=== PATIENT | male | born 1975 | race Hispanic/Latino ===

== ENCOUNTER → 2019-01-26 | Day surgery (SDC) | payer OTHER ==
[2019-01-24 09:44] LABS: BASOPHILS % 0.4 % (0.0-1.0); EOSINOPHILS # (AUTO) 0.1 (0.0-0.4); EOSINOPHILS % 1.1 % (0.0-6.0); HEMATOCRIT 45.7 % (38.2-49.6); HEMOGLOBIN 16.1 g/dL (14.0-18.0); LYMPHOCYTES # (AUTO) 1.9 (1.0-3.2); LYMPHOCYTES % 22.7 % (18.0-39.1); MEAN CORPUSCULAR HEMOGLOBIN 30.7 pg (28-32); MEAN CORPUSCULAR HGB CONC 35.2 g/dL (31-35); MONOCYTES # (AUTO) 0.8 (0.2-0.8); MONOCYTES % 9.4 % (4.4-11.3); NEUTROPHILS # (AUTO) 5.7 (2.1-6.9); PLATELET COUNT 285 x10e3/uL (140-360); RED BLOOD COUNT 5.25 x10e6/uL (4.3-5.7); RED CELL DISTRIBUTION WIDTH 12.2 % (11.7-14.4)
[2019-01-24 10:00] LABS: ANION GAP 14.7 mmol/L (8-16); BLOOD UREA NITROGEN 18 mg/dL (7-26); BUN/CREATININE RATIO 16 (6-25); CALCIUM 9.8 mg/dL (8.4-10.2); CARBON DIOXIDE 22 mmol/L (22-29); CHLORIDE 104 mmol/L (98-107); CREATININE, SERUM 1.11 mg/dL (0.72-1.25); EST GLOMERULAR FILTRATION RATE > 60 ML/MIN (60-); GLUCOSE 87 mg/dL (74-118); POTASSIUM 3.7 mmol/L (3.5-5.1); SODIUM 137 mmol/L (136-145)
[~2019-01-26] MED LIST: ACETAMINOPHEN 1000 MG/100 ML IV ONE; AMLODIPINE BESY10 MG PO; BUPIVACAINE 0.25%/EPI 30ML SDV INJ ONE; DEXAMETHASONE SOD PHOS INJ 4 MG/ML VIAL ONE; FENTANYL CITRATE/PF 100MCG/2 ML INJ ONE; GLYCOPYRROLATE INJ 1MG/ 5 ML SYR ONE; HYDROCODONE/APAP 7.5MG-325MG 1 EA TAB ONE; HYDROMORPHONE 1MG/1ML INJ ONE; KETOROLAC TROMETHAMINE 30 MG/ML VIAL ONE; LIDOCAINE HCL 1% LOCAL INJ 20 ML VIAL ONE; LIDOCAINE HCL 2% LOCAL INJ 5 ML SDV VIAL INJ ONE; MIDAZOLAM HCL 2 MG/2 ML VIAL ONE; NEOSTIGMINE 5 MG/5ML SYR ONE; ONDANSETRON HCL INJ 2MG/ML 2ML 2 MG/ML VIAL ONE; PROPOFOL IV EMULSION 10 MG/ML 20 ML VIAL ONE; ROCURONIUM BROMIDE 10 MG/ML 5ML VIAL ONE; SEVOFLURANE INHAL SOLN 250 ML PEN BTL ONE; ULTRAM 50MG50 MG PO
--- OUTSIDE RECORDS SUMMARY | 2019-01-26 07:38 | XMS REPORT ---
Author Author [facility] Address Unknown Phone Unavailable Care Team Providers Care Scanner Supervisor Name Role Phone Unavailable Unavailable Problems This patient has no known problems. Allergies, Adverse Reactions, Alerts This patient has no known allergies or adverse reactions. Medications This patient has no known medications. Results Test Description Test Time Test Comments Text Results Atomic Results Result Comments US [employer] w/Transvag if indicated 2018-12-26 19:39:12 Patient: UBALDO MONTANO Date/Time12/26/2018 19:03 CDTReason for Examllq buldging;Pain (please specify)ReportCLINICAL INFORMATION: Bulging of the left lower quadrantDictation Location: R 16Comparison: No prior.Technique: Real-time grayscale study with Doppler analysisFindings: There is bulging at the left lower quadrant which appears to be a hernia within the precise location of the hernia opening not established. The gap is approximately 1 cm, and the hernia sac approximately 2 cm. There is peristalsis and blood flow demonstrated.IMPRESSION: Apparent inguinal hernia to be correlated with clinical findings. Final Dictated by: MD Sommer Andrew GDictated DT/TM: 12/26/2018 7:37 pmSigned by: MD Sommer Andrew GSigned (Electronic Signature): 12/26/2018 7:39 pm Comprehensive Metabolic Panel 2018-12-26 19:03:55 Sodium Level (test code=Sodium Level) 142.0 mmol/L 135.0-145.0 Potassium Level (test code=Potassium Level) 4.3 mmol/L 3.5-5.1 Chloride Level (test code=Chloride Level) 104 mmol/L 98-105 CO2 (test code=CO2) 22 mmol/L 22-29 Anion Gap (test code=Anion Gap) 16 mmol/L 7-16 BUN (test code=BUN) 17.30 mg/dL 6.00-20.00 Creatinine Level (test code=Creatinine Level) 1.20 mg/dL 0.70-1.20 BUN/Creat Ratio (test code=BUN/Creat Ratio) 14 Glucose Level (test code=Glucose Level) 90 mg/dL 70-115 Calcium Level (test code=Calcium Level) 9.5 mg/dL 8.3-10.5 Alk Phos (test code=Alk Phos) 113 U/L 40-129 Bilirubin Total (test code=Bilirubin Total) 0.6 mg/dL 0.1-0.9 Albumin Level (test code=Albumin Level) 4.6 g/dL 3.5-5.2 Protein Total (test code=Protein Total) 7.0 g/dL 6.4-8.3 ALT (test code=ALT) 16 U/L 1-41 AST (test code=AST) 30 U/L 1-40 Globulin (test code=Globulin) 2.4 g/dL 2.9-3.1 A/G Ratio (test code=A/G Ratio) 1.9 ratio Comprehensive Metabolic [id number] 19:03:55* Test Item Value Reference Range Comments Sodium Level (test code=Sodium Level) 142.0 mmol/L 135.0-145.0 Potassium Level (test code=Potassium Level) 4.3 mmol/L 3.5-5.1 Chloride Level (test code=Chloride Level) 104 mmol/L 98-105 CO2 (test code=CO2) 22 mmol/L 22-29 Anion Gap (test code=Anion Gap) 16 mmol/L 7-16 BUN (test code=BUN) 17.30 mg/dL 6.00-20.00 Creatinine Level (test code=Creatinine Level) 1.20 mg/dL 0.70-1.20 BUN/Creat Ratio (test code=BUN/Creat Ratio) 14 Glucose Level (test code=Glucose Level) 90 mg/dL 70-115 Calcium Level (test code=Calcium Level) 9.5 mg/dL 8.3-10.5 Alk Phos (test code=Alk Phos) 113 U/L 40-129 Bilirubin Total (test code=Bilirubin Total) 0.6 mg/dL 0.1-0.9 Albumin Level (test code=Albumin Level) 4.6 g/dL 3.5-5.2 Protein Total (test code=Protein Total) 7.0 g/dL 6.4-8.3 ALT (test code=ALT) 16 U/L 1-41 AST (test code=AST) 30 U/L 1-40 Globulin (test code=Globulin) 2.4 g/dL 2.9-3.1 A/G Ratio (test code=A/G Ratio) 1.9 ratio eGFR AA (test code=eGFR AA) >60 mL/min/1.73 m2 eGFR (estimated Glomerular Filtration Rate) is an estimated value, calculated from the patient's serum creatinine using the MDRD equation. It is NOT the patient's actual GFR. The eGFR provides a more clinically useful measure of kidney disease than serum creatinine alone.This calculation takes sex and race into account, if the information is provided. If the race is not provided, and the patient is -[place], multiply by 1.212. If sex is not provided, and the patient is female, multiply by 0.742. Results for patients <18 years of age have not been validated by the MDRD study and should be interpreted with caution. eGFR Result Interpretation:eGFR > or=60 is in the Normal RangeeGFR < 60 may mean kidney diseaseeGFR < 15 may mean kidney failure Ranges recommended by the National Kidney Foundation, http://nkdep.nih.gov Comprehensive Metabolic [id number] 19:03:55* Test Item Value Reference Range Comments Sodium Level (test code=Sodium Level) 142.0 mmol/L 135.0-145.0 Potassium Level (test code=Potassium Level) 4.3 mmol/L 3.5-5.1 Chloride Level (test code=Chloride Level) 104 mmol/L 98-105 CO2 (test code=CO2) 22 mmol/L 22-29 Anion Gap (test code=Anion Gap) 16 mmol/L 7-16 BUN (test code=BUN) 17.30 mg/dL 6.00-20.00 Creatinine Level (test code=Creatinine Level) 1.20 mg/dL 0.70-1.20 BUN/Creat Ratio (test code=BUN/Creat Ratio) 14 Glucose Level (test code=Glucose Level) 90 mg/dL 70-115 Calcium Level (test code=Calcium Level) 9.5 mg/dL 8.3-10.5 Alk Phos (test code=Alk Phos) 113 U/L 40-129 Bilirubin Total (test code=Bilirubin Total) 0.6 mg/dL 0.1-0.9 Albumin Level (test code=Albumin Level) 4.6 g/dL 3.5-5.2 Protein Total (test code=Protein Total) 7.0 g/dL 6.4-8.3 ALT (test code=ALT) 16 U/L 1-41 AST (test code=AST) 30 U/L 1-40 Globulin (test code=Globulin) 2.4 g/dL 2.9-3.1 A/G Ratio (test code=A/G Ratio) 1.9 ratio eGFR AA (test code=eGFR AA) >60 mL/min/1.73 m2 eGFR (estimated Glomerular Filtration Rate) is an estimated value, calculated from the patient's serum creatinine using the MDRD equation. It is NOT the patient's actual GFR. The eGFR provides a more clinically useful measure of kidney disease than serum creatinine alone.This calculation takes sex and race into account, if the information is provided. If the race is not provided, and the patient is -[place], multiply by 1.212. If sex is not provided, and the patient is female, multiply by 0.742. Results for patients <18 years of age have not been validated by the MDRD study and should be interpreted with caution. eGFR Result Interpretation:eGFR > or=60 is in the Normal RangeeGFR < 60 may mean kidney diseaseeGFR < 15 may mean kidney failure Ranges recommended by the National Kidney Foundation, http://nkdep.nih.gov eGFR Non-AA (test code=eGFR Non-AA) >60.00 mL/min/1.73 m2 eGFR (estimated Glomerular Filtration Rate) is an estimated value, calculated from the patient's serum creatinine using the MDRD equation. It is NOT the patient's actual GFR. The eGFR provides a more clinically useful measure of kidney disease than serum creatinine alone.This calculation takes sex and race into account, if the information is provided. If the race is not provided, and the patient is -[place], multiply by 1.212. If sex is not provided, and the patient is female, multiply by 0.742. Results for patients <18 years of age have not been validated by the MDRD study and should be interpreted with caution. eGFR Result Interpretation:eGFR > or=60 is in the Normal RangeeGFR < 60 may mean kidney diseaseeGFR < 15 may mean kidney failure Ranges recommended by the National Kidney Foundation, http://nkdep.nih.gov Complete Blood Count with [id number] 18:20:53* Test Item Value Reference Range Comments WBC (test code=WBC) 7.2 x10 4.4-10.5 RBC (test code=RBC) 5.56 x10 4.10-5.70 Hgb (test code=Hgb) 17.3 g/dL 13.4-17.4 MCV (test code=MCV) 89.20 fL 80.00-100.00 Hct (test code=Hct) 49.6 % 38.7-52.0 MCHC (test code=MCHC) 34.90 g/dL 32.00-37.50 RDW CV (test code=RDW CV) 12.4 % 11.5-14.5 MCH (test code=MCH) 31.1 pg 27.0-32.5 Platelets (test code=Platelets) 264.0 x10 140.0-440.0 MPV (test code=MPV) 10.0 fL Slide Review (test code=Slide Review) Auto Auto Result created by [email or web address] nRBC (test code=nRBC) 0 NRBC Abs (test code=NRBC Abs) 0.00 x10 IPF (test code=IPF) 0 % Automated [id number] 18:20:53* Test Item Value Reference Range Comments Neutro Auto (test code=Neutro Auto) 73.6 % 36.0-70.0 Lymph Auto (test code=Lymph Auto) 13.9 % 12.0-44.0 Kidder Auto (test code=Kidder Auto) 11.4 % 0.0-11.0 Eos, Auto (test code=Eos, Auto) 0.7 % 0.0-7.0 Basophil Auto (test code=Basophil Auto) 0.1 % 0.0-2.0 Neutro Absolute (test code=Neutro Absolute) 5.3 x10 1.6-7.4 Lymph Absolute (test code=Lymph Absolute) 1.00 x10 .50-4.60 Kidder Absolute (test code=Kidder Absolute) .82 x10 .00-1.20 Eos Absolute (test code=Eos Absolute) 0.05 x10 0.00-0.74 Baso Absolute (test code=Baso Absolute) 0.01 x10 0.00-0.21 IG [id number] 18:20:53* Test Item Value Reference Range Comments IG (test code=IG) 0.3 % 0.0-5.0 IG Abs (test code=IG Abs) 0 x10
[2019-01-26 14:15] VITALS: BP 120/91
--- NOTE | 2019-01-26 19:24 | Operative Report ---
DATE OF PROCEDURE: 01/26/2019 SURGEON: Kenny Sanabria MD PREOPERATIVE DIAGNOSIS: Left inguinal hernia. POSTOPERATIVE DIAGNOSIS: Left inguinal hernia. OPERATION PERFORMED: Repair of left inguinal hernia. ANESTHESIA: General. COMPLICATIONS: None. ESTIMATED BLOOD LOSS: Minimal. DESCRIPTION OF PROCEDURE: With the patient lying in bed in the supine position, under good general anesthesia, the abdomen was prepped with Betadine solution and draped in the usual manner. A left inguinal incision was made, it was carried down through the subcutaneous tissue down to the external oblique aponeurosis. External oblique was then opened along the length of its fibers and the external inguinal ring was opened. The cord was then mobilized and retracted, contained within the cord was a large indirect hernia sac, which was from the cord structures and then a high ligation was performed with a 2-0 silk suture ligature and 2-0 silk tie. The excess was resected. There was also a small lipoma of the cord, which was ligated with 2-0 Vicryl and divided. After this was done, the preperitoneal space was entered right through the internal ring and a pocket was created without any difficulty. A large Prolene hernia system was placed in the preperitoneal space and the underlay patch was deployed without any problems. The overlay patch was then placed over the floor and split inferolaterally to allow for passage of the cord. The mesh was then sutured to the conjoined tendon and the inguinal ligament using interrupted sutures of 2-0 Vicryl. The whole area was thoroughly irrigated. Perfect hemostasis was ascertained. All layers were infiltrated on the way out with solution of 0.25% Marcaine and 1% lidocaine mixed in equal parts. The external oblique aponeurosis was then closed with a running suture of 2-0 Vicryl. The subcutaneous tissue was approximated with 3-0 plain and the skin was closed with clips. A dressing was applied. The sponge, lap, and needle counts were correct. The patient tolerated the procedure well and returned to the recovery room in stable condition. Kenny Sanabria MD JLR/MODL /[id number]
== END | disposition home or self-care (01) ==
LOC: OR 07:13
PROVIDERS: ATTEND Surgery
DX: K40.90 Unilateral inguinal hernia, without obstruction or gangrene, not specified as recurrent (principal); D17.6 Benign lipomatous neoplasm of spermatic cord; I10 Essential (primary) hypertension; F41.9 Anxiety disorder, unspecified; Z88.0 Allergy status to penicillin; Z01.810 Encounter for preprocedural cardiovascular examination; Z01.812 Encounter for preprocedural laboratory examination
CPT/HCPCS: 36415; 49505; 80048; 85025; 93005; C1781; J0131; J1100; J1170; J1885; J2001 ×2; J2250; J2405; J2704; J3010; J3490